=== PATIENT | female | born 1985 | race African-American/Black ===

== ENCOUNTER 2020-06-11 19:05 | Emergency (ER) | payer OTHER ==
[~2020-06-11] VITALS: Ht 149.9 cm; Wt 54.4 kg
[2020-06-11] MEDS ORDERED: NEURONTIN300 MG PO (19:21)
[2020-06-11] MEDS ORDERED: FLEXERIL PO (19:21)
[2020-06-11 19:45] LABS: URINE BILIRUBIN NEGATIVE (Negative); URINE BLOOD NEGATIVE (Negative); URINE CLARITY CLEAR; URINE COLOR YELLOW; URINE GLUCOSE-RANDOM NEGATIVE (Negative); URINE KETONES 1+ (Negative); URINE LEUKOCYTES-REFLEX NEGATIVE (Negative); URINE NITRITE-REFLEX NEGATIVE (Negative); URINE PROTEIN NEGATIVE (Negative); URINE SPECIFIC GRAVITY >= 1.030 (1.005-1.030); URINE UROBILINOGEN 0.2 E.U./dl (0.2-1.0)
[2020-06-11 19:46] LABS: ABSOLUTE BASOPHILS 0.1 thou/uL (0.0-0.2); ABSOLUTE MONOCYTES 0.7 thou/uL (0.0-1.2); BASOPHILS 1.1 %; EOSINOPHILS 0.4 %; HEMATOCRIT 35.4 % (37.0-47.0); HEMOGLOBIN 11.3 gm/dL (12.0-15.0); LYMPHOCYTES 35.3 %; MCH 26.6 pg (26.0-34.0); MCHC 31.8 g/dL (28.0-37.0); MCV 83.7 fL (80.0-100.0); MONOCYTES 11.7 %; MPV 7.9 fl. (7.2-11.1); NUCLEATED RBCS 0 /100WBC; PLATELET COUNT* 333 thou/uL (150-400); POLYS 51.5 %; RBC 4.23 mil/uL (4.20-5.00); RDW-CV 17.3 % (10.5-14.5); WBC 5.8 thou/uL (4.0-11.0)
[2020-06-11 19:56] LABS: CALCIUM 9.3 mg/dL (8.5-10.1); CREATININE 0.8 mg/dL (0.6-1.3); POTASSIUM 3.7 mmol/L (3.5-5.1)
[2020-06-11 20:00] LABS: TOTAL BILIRUBIN 0.3 mg/dL (<0.1-1.0); TOTAL PROTEIN 8.5 g/dL (6.4-8.2)
[2020-06-11] MEDS ORDERED: HYDROCODON-ACE1 EAC7 PO (21:03)
[2020-06-11 21:06] VITALS: BP 129/86
== END 2020-06-11 21:08 | disposition home or self-care (01) ==
LOC: M.ERS 19:05
PROVIDERS: Personal Emergency Response Attendant
DX: N28.89 Other specified disorders of kidney and ureter (principal); Z87.440 Personal history of urinary (tract) infections

== ENCOUNTER → 2020-06-21 | Outpatient (CLI) | payer OTHER ==
[~2020-06-21] MED LIST: FLEXERIL PO; HYDROCODON-ACE1 EAC7 PO; NEURONTIN300 MG PO
--- NOTE | 2020-06-22 09:35 | TST ---
[facility] [address] [place] [address] TREADMILL STRESS TEST Name: HUSSAIN MEDEROS Room: [facility]#: [id number] Admission: 06/21/20 Attend Phys: Veronica Brothers Discharge: Date of : 81 Date of Service: 06/21/20 1632 Report #: [id number] THIS REPORT FOR: cc: Cindy Song MD, Tisha Darice MD Liston, Michael J. MD [facility] ~ DATE OF SERVICE: 06/21/2020 REFERRING PROVIDER: LYNN Gaspar PROCEDURE: Standard Michele protocol exercise stress test. INDICATION: Chest pain. CORONARY HISTORY: None. CARDIAC RISK FACTORS: Tobacco use up until 2 months ago and family history of coronary artery disease. CARDIAC MEDICATIONS: None. The patient exercised per standard Michele protocol for a total of 7 minutes and 18 seconds. The patient achieved 97% of the age predicted maximum heart rate and an energy expenditure equivalent to 9.04 METs. The resting heart rate was 75 beats per minute with a resting blood pressure of 115/78 mmHg. At peak stress, the pulse rate was 179 beats per minute with a peak stress blood pressure of 154/67 mmHg. Recovery heart rate was 90 beats per minute with a recovery blood pressure of 129/77 mmHg. The patient exhibited normal blood pressure and pulse rate response to standard Michele protocol exercise. Exercise was stopped due to achievement of target heart rate. The patient had no cardiac symptoms with standard Michele protocol exercise. The baseline 12-lead EKG shows sinus rhythm without significant ST segment or T-wave abnormality. EKG is obtained during and post-exercise shows sinus rhythm and sinus tachycardia with no significant ST segment or T-wave changes to suggest inducible ischemia. There were no stress-induced arrhythmias. IMPRESSION: 1. Clinical response: Nonischemic. 2. EKG response: [place] [address] TREADMILL STRESS TEST Name: HUSSAIN MEDEROS Room: [facility]#: [id number] Admission: 06/21/20 Attend Phys: Veronica Brothers Discharge: Date of : 81 Date of Service: 06/21/20 163 Report #: [id number] 3. Exercise tolerance: Fair. CONCLUSION: The standard Michele protocol exercise stress test shows no clinical or EKG evidence to suggest stress-induced cardiac ischemia. This is a low-risk study. <ELECTRONICALLY SIGNED> By: Christo Perez MD, FACC 06/22/20 0935 [id number] Christo Perez MD, FACC /nt
== END ==
LOC: M.CRD 14:44
PROVIDERS: ATTEND Nurse Practitioner Family
DX: R07.9 Chest pain, unspecified (principal)